=== PATIENT | female | born 1945 | race Caucasian/White ===

== ENCOUNTER 2017-10-30 08:17 | Emergency (ER) | payer BC, MEDICARE ==
[~2017-10-30] VITALS: Ht 165.1 cm; Wt 65.0 kg
[2017-10-30 08:18] VITALS: BP 186/102; PULSE 91; RESP 18; TEMP 98.4; O2SAT 98
[2017-10-30] MEDS ORDERED: LISI-519 PO (08:30)
[2017-10-30] MEDS ORDERED: AMLO5 PO (08:30)
[2017-10-30] MEDS ORDERED: ONCETAB7 PO (08:30)
[2017-10-30] MEDS ORDERED: ASPI-516 PO (08:30)
[2017-10-30] MEDS ORDERED: ATEN100T PO (08:30)
--- NOTE | 2017-10-30 08:38 | PD ---
HPI Chief Complaint: Complaint Time Seen by Provider: 08:26 Travel History International Travel<30 days: No Contact w/Intl Traveler<30days: No Traveled to known affect area: No History of Present Illness HPI This is a 72-year-old female who presents to the emergency department with hematuria that started this morning. She says she felt like she had to go to the bathroom and felt a burning sensation, constant, moderate severity throughout the morning and then noticed that she was passing blood in her urine with some blood clots. This is never happened to her before. She doesn't think it's coming from her vagina but she is not entirely sure. She denies any fevers or chills and any back pain. She takes a baby aspirin every day. PFSH Past Medical History Hx Anticoagulant Therapy: Yes (ASA) Cardiovascular Problems: Yes High Cholesterol: Yes Diminished Hearing: No Hypertension: Yes : 3 Para: 3 Tubal Ligation: Yes Past Surgical History Gynecologic Surgery: Yes Social History Alcohol Use: No Tobacco Use: No (QUIT 4 YEARS AGO) Substance Use: No Allergies-Medications (Allergen,Severity, Reaction): Coded Allergies: levofloxacin (Verified Allergy, Intermediate, RASH, 10/30/17) Reported Meds & Prescriptions Reported Meds & Active Scripts Active Reported Once Daily (Multivitamin) 1 Each Tablet 1 Tab PO DAILY Lisinopril 5 Mg Tab 5 Mg PO DAILY Norvasc (Amlodipine Besylate) 5 Mg Tab 5 Mg PO DAILY Atenolol 100 Mg Tab 100 Mg PO DAILY Aspirin 81 Mg Chew 81 Mg PO DAILY Review of Systems Except as stated in HPI: all other systems reviewed are Neg Physical Exam Narrative GENERAL:Well appearing, no acute distress SKIN: Focused skin assessment warm and dry. HEAD: Atraumatic. Normocephalic. EYES: Pupils equal and round. No injection or drainage. ENT: Moist mucous membranes NECK: Trachea midline. CARDIOVASCULAR: Regular rate and rhythm. No murmur appreciated. RESPIRATORY: Clear to auscultation. Breath sounds equal bilaterally. GASTROINTESTINAL: Abdomen soft, non-tender, nondistended. MUSCULOSKELETAL: No obvious deformities. NEUROLOGICAL: Awake and alert. No obvious cranial nerve deficits. Moving all extremities. PSYCHIATRIC: Appropriate mood and affect; insight and judgment normal. Data Data Last Documented VS Vital Signs Date Time Temp Pulse Resp B/P (MAP) Pulse Ox O2 Delivery O2 Flow Rate FiO2 10/30/17 08:30 16 10/30/17 08:18 98.4 91 186/102 (130) 98 Orders Orders Complete Blood Count With Diff (10/30/17 08:36) Comprehensive Metabolic Panel (10/30/17 08:36) ^ Insert Iv (10/30/17 08:36) Urinalysis - C+S If Indicated (10/30/17 08:36) Phenazopyridine (Pyridium) (10/30/17 09:15) Urine Culture (10/30/17 08:30) Labs Laboratory Tests Test 10/30/17 08:30 White Blood Count 12.7 TH/MM3 Red Blood Count 4.29 MIL/MM3 Hemoglobin 13.2 GM/DL Hematocrit 38.7 % Mean Corpuscular Volume 90.1 FL Mean Corpuscular Hemoglobin 30.7 PG Mean Corpuscular Hemoglobin Concent 34.1 % Red Cell Distribution Width 13.1 % Platelet Count 284 TH/MM3 Mean Platelet Volume 8.6 FL Neutrophils (%) (Auto) 80.7 % Lymphocytes (%) (Auto) 9.2 % Monocytes (%) (Auto) 8.4 % Eosinophils (%) (Auto) 0.9 % Basophils (%) (Auto) 0.8 % Neutrophils # (Auto) 10.3 TH/MM3 Lymphocytes # (Auto) 1.2 TH/MM3 Monocytes # (Auto) 1.1 TH/MM3 Eosinophils # (Auto) 0.1 TH/MM3 Basophils # (Auto) 0.1 TH/MM3 CBC Comment DIFF FINAL Differential Comment Urine Color Red Urine Turbidity Cloudy Urine pH 7.0 Urine Specific [place] 1.023 Urine Protein 300 OR GREATER mg/dL Urine Glucose (UA) NEG mg/dL Urine Ketones NEG mg/dL Urine Occult Blood LARGE Urine Nitrite NEG Urine Bilirubin NEG Urine Urobilinogen 1.0 MG/DL Urine Leukocyte Esterase SMALL Urine RBC /hpf Urine WBC 15-19 /hpf Urine WBC Clumps OCC Urine Bacteria OCC /hpf Microscopic Urinalysis Comment CULTURE INDICATED Blood Urea Nitrogen 15 MG/DL Creatinine 0.85 MG/DL Random Glucose 97 MG/DL Total Protein 7.9 GM/DL Albumin 3.7 GM/DL Calcium Level 9.4 MG/DL Alkaline Phosphatase 85 U/L Aspartate Amino Transf (AST/SGOT) 53 U/L Alanine Aminotransferase (ALT/SGPT) 25 U/L Total Bilirubin 0.7 MG/DL Sodium Level 137 MEQ/L Potassium Level 5.5 MEQ/L Chloride Level 105 MEQ/L Carbon Dioxide Level 25.8 MEQ/L Anion Gap 6 MEQ/L Estimat Glomerular Filtration Rate 65 ML/MIN MDM Medical Decision Making Medical Screen Exam Complete: Yes Emergency Medical Condition: Yes Interpretation(s) Afebrile, hypertensive Mild leukocytosis Potassium is elevated but the specimen is hemolyzed Urinalysis demonstrates a large amount of blood with some white blood cell clumps Differential Diagnosis Hemorrhagic cystitis, bladder cancer, vaginal bleeding, anemia Narrative Course This is a 72-year-old female who presents to the emergency department with dysuria, urinary frequency and hematuria that started this morning. She's been passing blood clots in her urine. Her symptoms are suggestive of hemorrhagic cystitis. She does have a mild leukocytosis. Her creatinine is normal. I think patient can be discharged on antibiotics and follow up with urology. I did do a gynecologic exam and didn't see any bleeding from the vagina Diagnosis Primary Impression: Hemorrhagic cystitis Referrals: Taz Cunningham DO Patient Instructions: General Instructions Additional Instructions: If you develop fever, persistent vomiting, back pain, or inability to eat return to the emergency department as your urine infection may have progressed to a kidney infection. Complete your antibiotics as prescribed. Stay well hydrated with Gatorade or water. Follow-up with a urologist without fail as we always want to rule out bladder cancer in people with blood in their urine. Med/Other Pt SpecificInfo: Prescription(s) given Scripts Phenazopyridine (Pyridium) 100 Mg Tab 100 MG PO Q8H Y for DYSURIA, #6 TAB 0 Refills Prov: Ciara Begum MD 10/30/17 Cephalexin (Keflex) 500 Mg Cap 500 MG PO Q12H for Infection for 7 Days, #14 CAP 0 Refills Prov: Ciara Begum MD 10/30/17 Disposition: 01 DISCHARGE HOME Condition: Stable Ciara Begum MD Oct 30, 2017 08:38
[2017-10-30 09:02] LABS: AUTOMATED NEUTROPHIL # 10.3 TH/MM3 (1.8-7.7); BASOPHIL # 0.1 TH/MM3 (0-0.2); BASOPHIL % 0.8 % (0.0-2.0); EOSINOPHIL # 0.1 TH/MM3 (0-0.4); EOSINOPHIL % 0.9 % (0.0-4.0); HEMATOCRIT 38.7 % (35.0-46.0); HEMOGLOBIN 13.2 GM/DL (11.6-15.3); LYMPH % 9.2 % (9.0-44.0); LYMPHOCYTE # 1.2 TH/MM3 (1.0-4.8); MEAN CELL VOLUME 90.1 FL (80.0-100.0); MEAN CORPUSCULAR HEMOGLOBIN 30.7 PG (27.0-34.0); MEAN CORPUSCULAR HGB CONC 34.1 % (32.0-36.0); MEAN PLATELET VOLUME 8.6 FL (7.0-11.0); MONO % 8.4 % (0.0-8.0); MONOCYTE # 1.1 TH/MM3 (0-0.9); NEUT % 80.7 % (16.0-70.0); PLATELET COUNT 284 TH/MM3 (150-450); RED BLOOD COUNT 4.29 MIL/MM3 (4.00-5.30); RED CELL DISTRIBUTION WIDTH 13.1 % (11.6-17.2); WHITE BLOOD COUNT 12.7 TH/MM3 (4.0-11.0)
[2017-10-30 09:12] LABS: ALT (GPT) 25 U/L (10-53)
[2017-10-30 09:15] LABS: ALKALINE PHOSPHATASE 85 U/L (45-117); TOTAL BILIRUBIN ADULT 0.7 MG/DL (0.2-1.0); TOTAL PROTEIN 7.9 GM/DL (6.4-8.2)
[2017-10-30] MEDS ORDERED: PHENAZOPYRIDINE HCL 200 MG TAB PO ONE (09:15)
[2017-10-30 09:16] LABS: ALBUMIN 3.7 GM/DL (3.4-5.0); BICARBONATE 25.8 MEQ/L (21.0-32.0); BLOOD UREA NITROGEN 15 MG/DL (7-18); CALCIUM 9.4 MG/DL (8.5-10.1); CHLORIDE 105 MEQ/L (98-107); CREATININE 0.85 MG/DL (0.50-1.00); GLOMERULAR FILTRATION RATE 65 ML/MIN (>89); GLUCOSE,RANDOM 97 MG/DL (74-106); SODIUM (NA) 137 MEQ/L (136-145)
[2017-10-30 09:17] LABS: AST (GOT) 53 U/L (15-37)
[2017-10-30 09:39] LABS: BILIRUBIN, URINE NEG (NEG); BLOOD, URINE LARGE (NEG); GLUCOSE,URINE NEG (NEG); KETONE, URINE NEG (NEG); NITRITE,URINE NEG (NEG); URINE COLOR Red (YELLW/STRAW); URINE LEUKOCYTE ESTERASE SMALL (NEG)
[2017-10-30 09:45] LABS: WBC, URINE 15-19 /hpf (0-5); WHITE BLOOD CELL CLUMPS OCC
[2017-10-30 09:46] LABS: BACTERIA, URINE OCC /hpf
[2017-10-30] MEDS ORDERED: CEPH-460 PO (09:55)
[2017-10-30] MEDS ORDERED: PHEN0.4T PO (09:55)
[2017-10-30 10:00] VITALS: BP 128/77; TEMP 97.8
== END 2017-10-30 10:00 | disposition home or self-care (01) ==
LOC: NEPC 08:17
DX: N30.91 Cystitis, unspecified with hematuria (principal); I10 Essential (primary) hypertension; Z79.82 Long term (current) use of aspirin; Z87.891 Personal history of nicotine dependence
CPT/HCPCS: 80053; 81001; 85025; 87077; 87086; 87186; 99284